=== PATIENT | female | born 1975 | race Caucasian/White ===

== ENCOUNTER 2018-01-27 09:08 | Emergency (ER) | payer SELFPAY ==
[2018-01-27] MEDS ORDERED: ONDANSETRON 4 MG (ODT) TAB ONE (09:41)
[2018-01-27] MEDS ORDERED: KETOROLAC 30 MG/ML INJ ONE (09:41)
--- NOTE | 2018-01-27 10:00 | RAD REPORT ---
EXAM DESCRIPTION: RAD - Chest Pa And Lat (2 Views) - 01/27/2018 9:51 am CLINICAL HISTORY: Right-sided chest pain COMPARISON: May 2017 TECHNIQUE: PA and lateral views of the chest were obtained. FINDINGS: The lungs are clear. Heart size is normal and central vasculature is within normal limit s. No pleural effusion or pneumothorax seen. No acute bony finding noted. No aortic abnormality. No significant change from comparison. IMPRESSION: No acute cardiopulmonary process.
--- NOTE | 2018-01-27 10:04 | EDPHYS ---
Physician Documentation [facility] Name: Madison Merino Age: 42 yrs Sex: Female : 1975 Arrival Date: 01/27/2018 Time: 09:11 Bed 14 Private MD: None, None ED Physician Alex Ferrell HPI: 01/27 09:25 This 42 yrs old Female presents to ER via Ambulatory with complaints of Back kb Pain, Vomiting. 09:25 The patient presents with pain that is acute, with no known mechanism of injury. The kb symptoms are located in the right subscapular area. Onset: The symptoms/episode began/occurred just prior to arrival. The pain does not radiate. Associated signs and symptoms: Pertinent positives: nausea. The problem was sustained without known cause. Modifying factors: The patient symptoms are alleviated by nothing, the patient symptoms are aggravated by nothing. Severity of symptoms: At their worst the symptoms were moderate, in the emergency department the symptoms are unchanged. The patient has not experienced similar symptoms in the past. The patient has not recently seen a physician. 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 - Social history:: Smoking status: Patient/guardian denies using tobacco. - Ebola Screening: : No symptoms or risks identified at this time. ROS: 09:24 Constitutional: Negative for fever, chills, and weight loss, Cardiovascular: Negative kb for chest pain, palpitations, and edema, Respiratory: Negative for shortness of breath, cough, wheezing, and pleuritic chest pain, : Negative for injury, bleeding, discharge, and swelling, MS/Extremity: Negative for injury and deformity, Skin: Negative for injury, rash, and discoloration, Neuro: Negative for headache, weakness, numbness, tingling, and seizure. 09:24 Abdomen/GI: Positive for nausea and vomiting, Negative for abdominal pain, diarrhea, constipation, abdominal cramps, abdominal distension, anorexia. 09:24 Back: Positive for pain at rest, of the right subscapular area. Exam: 09:24 Constitutional: This is a well developed, well nourished patient who is awake, alert, kb and in no acute distress. Head/Face: Normocephalic, atraumatic. Chest/axilla: Normal chest wall appearance and motion. Nontender with no deformity. No lesions are appreciated. Cardiovascular: Regular rate and rhythm with a normal S1 and S2. No gallops, murmurs, or rubs. Normal PMI, no JVD. No pulse deficits. Respiratory: Lungs have equal breath sounds bilaterally, clear to auscultation and percussion. No rales, rhonchi or wheezes noted. No increased work of breathing, no retractions or nasal flaring. Abdomen/GI: Soft, non-tender, with normal bowel sounds. No distension or tympany. No guarding or rebound. No evidence of tenderness throughout. Back: No spinal tenderness. No costovertebral tenderness. Full range of motion. Skin: Warm, dry with normal turgor. Normal color with no rashes, no lesions, and no evidence of cellulitis. MS/ Extremity: Pulses equal, no cyanosis. Neurovascular intact. Full, normal range of motion. Neuro: Awake and alert, GCS 15, oriented to person, place, time, and situation. Cranial nerves II-XII grossly intact. Motor strength 5/5 in all extremities. Sensory grossly intact. Cerebellar exam normal. Normal gait. Vital Signs: 09:22 BP 132 / 99; Pulse 78; Resp 16; Temp 97.7; Pulse Ox 100% on R/A; Weight 103.42 kg; ph Height 5 ft. 6 in. (167.64 cm); Pain 8/10; 10:26 BP 134 / 87; Pulse 71; Resp 18; Temp 97.6; Pulse Ox 99% on R/A; Pain 6/10; ph 09:22 Body Mass Index 36.80 (103.42 kg, 167.64 cm) ph MDM: 09:15 Patient medically screened. kb 09:24 Data reviewed: vital signs, nurses notes. Data interpreted: Pulse oximetry: on room air kb is 100 %. Interpretation: normal. 10:00 Counseling: I had a detailed discussion with the patient and/or guardian regarding: the kb historical points, exam findings, and any diagnostic results supporting the discharge/admit diagnosis, radiology results, the need for outpatient follow up, a family practitioner, to return to the emergency department if symptoms worsen or persist or if there are any questions or concerns that arise at home. 01/27 09:22 Order name: Chest Pa And Lat (2 Views) XRAY; Complete Time: 10:00 kb Administered Medications: 09:40 Drug: Zofran 4 mg Route: PO; ph 10:18 Follow up: Response: No adverse reaction; Nausea is decreased ph 09:40 Drug: TORadol 60 mg Route: IM; Site: right gluteus; ph 10:18 Follow up: Response: No adverse reaction; Pain is decreased ph Disposition: 13:28 Co-signature as Attending Physician, Alex Ferrell MD I agree with the assessment and martha plan of care. PA/WASHING MACHINE OPERATOR's history reviewed, patient interviewed, and examined. Disposition: 01/27/18 10:03 Discharged to Home. Impression: Acute pain, not elsewhere classified - pain in right scapular area. - Condition is Stable. - Discharge Instructions: Muscle Pain, Adult, Back Pain, Adult, [id number]. - Prescriptions for Cyclobenzaprine 10 mg Oral Tablet - take 1 tablet by ORAL route every 8 hours As needed; 21 tablet. Diclofenac Sodium 75 mg Oral Tablet, Delayed Release (E.C.) - take 1 tablet by ORAL route 2 times per day As needed; 30 tablet. - Medication Reconciliation Form, Thank You Letter, Antibiotic Education, Prescription Opioid Use, Work release form form. - Follow up: Emergency Department; When: As needed; Reason: Worsening of condition. Follow up: Private Physician; When: 2 - 3 days; Reason: Recheck today's complaints, Continuance of care, Re-evaluation by your physician. Signatures: Dispatcher [employer] Nilam Mendez, Alex Vargas MD MD cha Hall, Patricia, RN RN ph Corrections: (The following items were deleted from the chart) 10:28 10:03 01/27/2018 10:03 Discharged to Home. Impression: Acute pain, not elsewhere ph classified - pain in right scapular area. Condition is Stable. Forms are Medication Reconciliation Form, Thank You Letter, Antibiotic Education, Prescription Opioid Use. Follow up: Emergency Department; When: As needed; Reason: Worsening of condition. Follow up: Private Physician; When: 2 - 3 days; Reason: Recheck today's complaints, Continuance of care, Re-evaluation by your physician. kb
--- NOTE | 2018-01-27 10:04 | ER ---
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 Transition of care: patient was not received from another setting of care. Onset of symptoms was January 27, 2018. Risk Assessment: Do you want to hurt yourself or someone else? Patient reports no desire to harm self or others. Initial Sepsis Screen: Does the patient meet any 2 criteria? No. Patient's initial sepsis screen is negative. Does the patient have a suspected source of infection? No. Patient's initial sepsis screen is negative. Care prior to arrival: None. 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 - Social history:: Smoking status: Patient/guardian denies using tobacco. - Ebola Screening: : No symptoms or risks identified at this time. Screenin:19 Abuse screen: Denies threats or abuse. Denies injuries from another. Nutritional ph screening: On. Tuberculosis screening: No symptoms or risk factors identified. Fall Risk None identified. Assessment: 09:30 General: Appears in no apparent distress. uncomfortable, well groomed, Behavior is ph calm, cooperative, appropriate for age. Pain: Complains of pain in right subscapular area Pain does not radiate. Neuro: Level of Consciousness is awake, alert, obeys commands, Oriented to person, place, time, situation. Cardiovascular: Capillary refill < 3 seconds in bilateral fingers Patient's skin is warm and dry. Respiratory: Airway is patent Respiratory effort is even, unlabored, Respiratory pattern is regular, symmetrical. GI: Reports nausea, Patient currently denies abdominal pain, diarrhea, vomiting. Derm: Skin is intact, is healthy with good turgor, Skin is pink, warm \\T\\ dry. Musculoskeletal: Circulation, motion, and sensation intact. Range of motion: intact in all extremities. Vital Signs: 09:22 BP 132 / 99; Pulse 78; Resp 16; Temp 97.7; Pulse Ox 100% on R/A; Weight 103.42 kg; ph Height 5 ft. 6 in. (167.64 cm); Pain 8/10; 10:26 BP 134 / 87; Pulse 71; Resp 18; Temp 97.6; Pulse Ox 99% on R/A; Pain 6/10; ph 09:22 Body Mass Index 36.80 (103.42 kg, 167.64 cm) ph ED Course: 09:11 Patient arrived in ED. mr 09:12 None, None is Private Physician. mr 09:14 Nilam Strickland [facility]C [facility] kb 09:15 Alex Ferrell MD is Attending Physician. kb 09:20 Loni Molina, CARLO is Primary Nurse. ph 09:22 Triage completed. ph 09:25 Arm band placed on. ph 09:43 Patient moved to radiology via wheelchair. ml 09:49 X-ray completed. Portable x-ray completed in exam room. Patient tolerated procedure ml well. Patient moved back from radiology. 09:50 Chest Pa And Lat (2 Views) XRAY In Process Unspecified. EDMS 10:19 Patient has correct armband on for positive identification. Bed in low position. Call ph light in reach. Side rails up X 1. Warm blanket given. 10:26 No provider procedures requiring assistance completed. Patient did not have IV access ph during this emergency room visit. Administered Medications: 09:40 Drug: Zofran 4 mg Route: PO; ph 10:18 Follow up: Response: No adverse reaction; Nausea is decreased ph 09:40 Drug: TORadol 60 mg Route: IM; Site: right gluteus; ph 10:18 Follow up: Response: No adverse reaction; Pain is decreased ph Outcome: 10:03 Discharge ordered by . kb 10:27 Discharged to home ambulatory. ph 10:27 Condition: good 10:27 Discharge instructions given to patient, Instructed on discharge instructions, follow up and referral plans. medication usage, Demonstrated understanding of instructions, follow-up care, medications, Prescriptions given X 2. 10:28 Patient left the ED. ph Signatures: Dispatcher [employer] EDMS Nilam Strickland, CERAMIC RESEARCH ENGINEER-C CERAMIC RESEARCH ENGINEER-Radha Bassett, Loni Moncada, RN RN ph
== END 2018-01-27 10:28 | disposition home or self-care (01) ==
LOC: ER 09:08
DX: M25.511 Pain in right shoulder (principal); K21.9 Gastro-esophageal reflux disease without esophagitis
CPT/HCPCS: 71046; 96372; 99283